=== PATIENT | male | born 1980 | race Caucasian/White ===

== ENCOUNTER 2020-02-06 11:10 | Emergency (ER) | payer SELFPAY ==
[~2020-02-06] VITALS: Ht 180.3 cm; Wt 66.5 kg
[2020-02-06 11:13] VITALS: BP 126/84
--- NOTE | 2020-02-06 11:26 | NUR ---
PT PRESENTS WITH "SORE" NEAR RECTUM. PT STATES HE THOUGHT IT WAS A HEMORROID. HE STATES IT IS NOW BLEEDING BRIGHT RED BLOOD AND NEEDS IT EVALUATED. PT STATES "THIS IS A ONE TIME THING, I DONT KNOW HOW IT GOT THERE"
== END 2020-02-06 12:02 | disposition home or self-care (01) ==
LOC: ED 11:36
DX: K64.4 Residual hemorrhoidal skin tags (principal)
CPT/HCPCS: 99281

== ENCOUNTER 2020-02-13 14:23 | Emergency (ER) | payer MEDICAID, OTHER ==
[~2020-02-13] VITALS: Ht 180.3 cm; Wt 64.5 kg
[2020-02-13 15:26] VITALS: BP 132/96
--- NOTE | 2020-02-13 15:29 | NUR ---
SITE MEDICAL DIRECTOR: PT TO ROOM FROM [facility]
--- NOTE | 2020-02-13 15:55 | NUR ---
PT UP TO RESTROOM, URINE SAMPLE COLLECTED AND SENT. PT ATTACHED TO MONITORS. DENIES ANY NEEDS OR CONCERNS. CALL LIGHT IN REACH.
[2020-02-13] MEDS ORDERED: METHADONE 10 MG TABLET PO ONE (16:45)
--- NOTE | 2020-02-13 16:45 | NUR ---
PT PROVIDED WITH EXTRA WATER PER REQUEST. [facility] RETRIEVED FROM PHARMACY, PT MEDICATED PER MAR. DENIES ANY FURTHER NEEDS OR CONCERNS, CALL LIGHT IN REACH.
== END 2020-02-13 18:08 | disposition home or self-care (01) ==
LOC: ED 18:00
DX: F11.23 Opioid dependence with withdrawal (principal); R51 Headache; R00.0 Tachycardia, unspecified; R19.7 Diarrhea, unspecified; Z76.0 Encounter for issue of repeat prescription; F17.200 Nicotine dependence, unspecified, uncomplicated
CPT/HCPCS: 93005; 99283

== ENCOUNTER 2020-10-05 04:56 | Emergency (ER) | payer MEDICARE, MEDICAID ==
[~2020-10-05] VITALS: Ht 180.3 cm; Wt 68.1 kg
[2020-10-05 04:59] VITALS: BP 122/93
--- NOTE | 2020-10-05 05:06 | NUR ---
ekg done in triage
[2020-10-05 06:14] LABS: BASOPHILS % (AUTO) 1 % (0-1); EOSINOPHILS % (AUTO) 2 % (1-7); LYMPHOCYTES % (AUTO) 20 % (22-44); MEAN CORPUSCULAR HEMOGLOBIN 30.1 pg (27.5-34.5); MEAN CORPUSCULAR HGB CONC 33.9 g/dL (33.2-36.2); MEAN PLATELET VOLUME 8.2 fL (7.4-10.4); MONOCYTES % (AUTO) 6 % (2-9); NEUTROPHILS % (AUTO) 72 % (42-75); PLATELET COUNT 289 x10^3/uL (130-400); RED BLOOD COUNT 5.38 x10^6/uL (4.38-5.82); RED CELL DISTRIBUTION WIDTH 13.8 % (9.4-14.8)
[2020-10-05 06:22] LABS: MD NO
[2020-10-05 06:24] LABS: ALBUMIN 4.1 g/dL (3.4-5.0); ANION GAP 7 mmol/L (5-15); CALCIUM 8.9 mg/dL (8.5-10.1); CHLORIDE 109 mmol/L (98-107)
[2020-10-05 06:32] LABS: CREATININE 0.91 mg/dL (0.7-1.3); TROPONIN I < 0.015 ng/mL (0.000-0.045)
--- NOTE | 2020-10-05 06:58 | NUR ---
Report given to JOSE Hernandez. Patient care transferred.
--- NOTE | 2020-10-05 07:00 | NUR ---
assume care of pt. report from Geeta GARCIA. pt here for sinus congestion. pt is currently pacing in room. no resp. distress. no family at bedside. awaiting test results
--- NOTE | 2020-10-05 07:45 | NUR ---
pt is not in room. unable to locate pt in department
== END 2020-10-05 08:07 | disposition left against medical advice (07) ==
LOC: ED 05:51
DX: B34.9 Viral infection, unspecified (principal); R07.89 Other chest pain; R00.0 Tachycardia, unspecified
CPT/HCPCS: 36415; 71045; 80048; 82040; 83880; 84484; 85025; 93005; 99285